=== PATIENT | female | born 1965 | race Caucasian/White ===

== ENCOUNTER 2018-04-23 20:40 | Emergency (ER) | payer MEDICAID, OTHER ==
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
[2018-04-24 01:10] LABS: Urine Appearance Clear; Urine Blood Negative (Negative); Urine Color Straw; Urine Ketones Negative (Negative); Urine Protein Negative (Negative); Urine Specific Gravity 1.002 (1.010-1.030); Urine Urobilinogen Negative (Negative)
[2018-04-24 02:17] VITALS: BP 166/101
== END 2018-04-24 02:15 | disposition home or self-care (01) ==
LOC: ED 20:40
DX: N81.10 Cystocele, unspecified (principal); N81.6 Rectocele; F41.9 Anxiety disorder, unspecified; E66.9 Obesity, unspecified; Z90.710 Acquired absence of both cervix and uterus
CPT/HCPCS: 81003; 81015; 87077; 87086; 87186; 99282